=== PATIENT | male | born 1975 ===

== ENCOUNTER 2017-11-04 16:21 | Emergency (ER) | payer OTHER ==
--- NOTE | 2017-11-04 17:44 | UC ---
Skin Complaint HPI - HPI Summary HPI Summary: itchy rash on both arms for 3 days also has chronic right knee pain---Is from [place] [facility] [place] - History of Current Complaint Chief Complaint: UCLowerExtremity Time Seen by Provider: 11/04/17 17:38 Stated Complaint: RASH AND KNEE PAIN Hx Obtained From: Patient Onset/Duration: Sudden Onset, Lasting Days - 3-rash, Lasting Weeks - knee-right Timing: Constant Pain Intensity: 7 Pain Scale Used: 0-10 Numeric Location: Discrete Character: Pain - knee, Redness - both arms, Raised - both arms Aggravating Factor(s): Nothing Alleviating Factor(s): Nothing Associated Signs & Symptoms: Positive: Negative - Allergy/Home Medications Allergies/Adverse Reactions: Allergies Allergy/AdvReac Type Severity Reaction Status Date / Time No Known Allergies Allergy Verified 11/04/17 16:33 Review of Systems Constitutional: Negative Skin: Rash - both arms Eyes: Negative ENT: Negative Respiratory: Negative Cardiovascular: Negative Gastrointestinal: Negative Genitourinary: Negative Motor: Negative Neurovascular: Negative Musculoskeletal: Arthralgia - right knee Neurological: Negative Psychological: Negative Is Patient Immunocompromised?: No All Other Systems Reviewed And Are Negative: Yes PMH/Surg Hx/FS Hx/Imm Hx Previously Healthy: Yes - Surgical History Surgical History: None - Family History Known Family History: Positive: None - Social History Occupation: Retired Lives: With Family Alcohol Use: Occasionally Substance Use Type: None Smoking Status (MU): Never Smoked Tobacco Physical Exam Triage Information Reviewed: Yes Appearance: Well-Appearing, No Pain Distress, Well-Nourished Vital Signs: Initial Vital Signs Temp 97.9 F 11/04/17 16:30 Pulse 83 11/04/17 16:30 Resp 18 11/04/17 16:30 BP 134/86 11/04/17 16:30 Pulse Ox 98 11/04/17 16:30 Eye Exam: Normal Eyes: Positive: Conjunctiva Clear ENT Exam: Normal ENT: Positive: Normal ENT inspection, Hearing grossly normal, Pharynx normal. Negative: Trismus, Muffled voice, Hoarse voice Dental Exam: Normal Neck exam: Normal Neck: Positive: Supple, Nontender, No Lymphadenopathy Respiratory Exam: Normal Respiratory: Positive: Chest non-tender, Lungs clear, Normal breath sounds, No respiratory distress, No accessory muscle use Cardiovascular Exam: Normal Cardiovascular: Positive: RRR, No Murmur, Pulses Normal, Brisk Capillary Refill Musculoskeletal Exam: Normal Musculoskeletal: Positive: Strength Intact, ROM Intact, No Edema Neurological Exam: Normal Neurological: Positive: Alert, Muscle Tone Normal Psychological Exam: Normal Skin Exam: Normal Skin: Positive: rashes - both arms Course/Dx - Course Course Of Treatment: liderm patch for knee pain, prednisone for contact dermititis follow [facility] or as return as needed - Diagnoses Provider Diagnoses: contact dermititis both arms, chronic right knee pain Discharge - Sign-Out/Discharge Documenting (check all that apply): Patient Departure - Discharge Plan Condition: Stable Disposition: HOME Prescriptions: Lidocaine PATCH 5%* [Lidoderm 5% Patch*] 1 patch TRANSDERM DAILY #30 patch predniSONE [Prednisone 20 MG TAB] 20 mg PO DAILY #18 tablet predniSONE TAB* [Deltasone 20 MG TAB*] 20 mg PO DAILY #18 tab Patient Education Materials: Ibuprofen (By mouth), Contact Dermatitis (ED), Knee Pain (ED), R.I.C.E. Treatment (ED) Referrals: No Primary Care Phys,NOPCP [Primary Care Provider] - Additional Instructions: Follow [facility] [place] or return as needed - Billing Disposition and Condition Condition: STABLE Disposition: Home
--- NOTE | 2017-11-04 18:03 | RAD ---
INDICATION: Right knee pain COMPARISON: None TECHNIQUE: AP, lateral, and oblique views were obtained. FINDINGS: The bony structures, joint spaces, and soft tissues are normal for age. IMPRESSION: NO ACUTE FINDINGS.
== END 2017-11-04 18:56 | disposition home or self-care (01) ==
LOC: UCEAST 16:21
DX: L25.9 Unspecified contact dermatitis, unspecified cause (principal); M25.561 Pain in right knee
CPT/HCPCS: 99202; G0463